=== PATIENT | female | born 1930 | race African-American/Black ===

== ENCOUNTER 2017-03-04 14:45 | Emergency (ER) | payer MEDICARE, MEDICAID ==
[~2017-03-04] VITALS: Ht 162.6 cm; Wt 74.0 kg
[2017-03-04 14:46] VITALS: BP 141/67; PULSE 82; RESP 20; TEMP 98.6; O2SAT 97
--- NOTE | 2017-03-04 16:04 | RADRPT ---
EXAM DATE/TIME: 03/04/2017 15:33 [facility] COMPARISON: No previous studies available for comparison. INDICATIONS : Pain and possible infection. MEDICAL HISTORY : Unobtainable. SURGICAL HISTORY : Total knee replacement, bilaterally. ENCOUNTER: Initial ACUITY: 3 weeks PAIN SCORE: 10/10 LOCATION: Right Entire knee. FINDINGS: Total knee arthroplasty hardware is in place with long femoral and tibial components. There are some invaginations and indentations on the midportion of both stems; is of uncertain significance and cou ld represent the architecture of the stem or fractures. The symmetric nature of both stems suggests that it is either side. There is lateral displacement of the distal tibial component with remodeling of the medial cortex and a lucency about the distal one third of the bone, metal interface measuring 4 mm. No lucency seen about the femoral component. There is mild soft tissue swelling anterior to the knee joint. No evidence of periosteal reaction in either the femur or tibia. There is periostea l reaction of the proximal metaphysis of the fibula. CONCLUSION: Longstem tibial and femoral components of total knee arthroplasty. There is radiographic evidence of loosening with remodeling of the distal tibial stem. No focal areas of bony destruction is seen. Daniel Qiu MD on March 04, 2017 at 16:00 Board Certified Radiologist. This report was verified electronically.
--- NOTE | 2017-03-04 16:20 | PD ---
HPI . right knee pain Chief Complaint: Injury Time Seen by Provider: 14:55 Travel History International Travel<30 days: No Contact w/Intl Traveler<30days: No Traveled to known affect area: No History of Present Illness HPI 86 year old female patient present to the emergency department for evaluation of right knee pain after falling on it 3 weeks ago. Patient has history of osteoarthritis and knee pain and has been evaluated by an orthopedist in the past. Patient has been ambulatory intermittently but typically uses a walker. Patient denies any chest pain, shortness of breath, fever, chills, malaise, nausea, vomiting, abdominal pain. PFSH Past Medical History Arthritis: Yes Asthma: Yes Respiratory: Yes (ASTHMA) Tetanus Vaccination: < 5 Years Influenza Vaccination: Yes ?: Not Para: 2 Past Surgical History Appendectomy: Yes Section: Yes (X 2) Hysterectomy: Yes Other Surgery: Yes (HERNIA REPAIR) Social History Alcohol Use: No Tobacco Use: No Substance Use: No Allergies-Medications (Allergen,Severity, Reaction): Coded Allergies: codeine (Verified Allergy, Severe, Nausea/Vomiting, 03/04/17) Reported Meds & Prescriptions Reported Meds & Active Scripts Active Active Prescriptions or Reported Medications Unobtainable Review of Systems Except as stated in HPI: all other systems reviewed are Neg Musculoskeletal: Positive: Pain (right knee pain) Physical Exam Narrative GENERAL: Well-nourished, well-developed 86-year-old female patient in no acute distress. Nontoxic appearing. SKIN: Focused skin assessment warm/dry. HEAD: Normocephalic. Atraumatic. EYES: No scleral icterus. No injection or drainage. NECK: Supple, trachea midline. No JVD or lymphadenopathy. CARDIOVASCULAR: Regular rate and rhythm without murmurs, gallops, or rubs. Bilateral pedal edema noted. Pedal pulses +2 bilaterally. RESPIRATORY: Breath sounds equal bilaterally. No accessory muscle use. GASTROINTESTINAL: Abdomen soft, non-tender, nondistended. MUSCULOSKELETAL: Right knee full range of motion with extension and flexion. No obvious deformity, erythema, ecchymosis cyanosis. BACK: Nontender without obvious deformity. No CVA tenderness. Data Data Last Documented VS Vital Signs Date Time Temp Pulse Resp B/P (MAP) Pulse Ox O2 Delivery O2 Flow Rate FiO2 03/04/17 16:58 03/04/17 14:46 98.6 82 20 97 Orders Orders Knee, Complete (4vws) (03/04/17 14:56) Ice/Cold Pack (03/04/17 14:56) Splint Or Brace Apply/Monitor (03/04/17 16:20) Ed Discharge Order (03/04/17 16:34) MDM Medical Decision Making Medical Screen Exam Complete: Yes Emergency Medical Condition: Yes Differential Diagnosis Differential diagnoses include but are not limited to contusion, sprain, osteoarthritis exacerbation, fall Narrative Course 86-year-old female presents emergency department for evaluation of right knee pain. X-ray of the right knee ordered and pending. Ice applied to the right knee. X-ray of the right knee shows longstem tibial and femoral components of total knee alveoloplasty. No focal areas of bony distraction seen. Right knee Js wrapped and patient discharged home with rice therapy instructions and instructions to follow-up with orthopedist. And states she had already spoken with her orthopedist about this prior any he has already said the only other option for her surgical. Patient states she will follow-up with him regarding this matter for potential surgery though. Last Impressions Knee X-Ray 03/04/17 [id number] Signed Impressions: Service Date/Time: Monday, March 04, 2017 15:33 - CONCLUSION: Longstem tibial and femoral components of total knee arthroplasty. There is radiographic evidence of loosening with remodeling of the distal tibial stem. No focal areas of bony destruction is seen. Daniel Qiu MD Diagnosis Primary Impression: Knee pain, right Qualified Codes: M25.561 - Pain in right knee Referrals: Orthopedist Patient Instructions: General Instructions, Knee Pain (ED) Additional Instructions: Please return to emergency department if your symptoms return or worsen. Follow up with your primary care provider. Follow-up with orthopedist Rice therapy to right knee, rest, ice, Js wrap with activity and elevate with resting. Scripts Unable to Obtain Active Prescriptions or Reported Meds Disposition: 01 DISCHARGE HOME Condition: Stable Mala Dawson KASSANDRA Mar 04, 2017 16:20
== END 2017-03-04 17:25 | disposition home or self-care (01) ==
LOC: NEPD 14:45
DX: M25.561 Pain in right knee (principal); M19.90 Unspecified osteoarthritis, unspecified site; J45.909 Unspecified asthma, uncomplicated; Z88.5 Allergy status to narcotic agent
CPT/HCPCS: 73564; 99284

== ENCOUNTER 2017-06-09 04:03 | Emergency (ER) | payer MEDICARE, MEDICAID ==
[~2017-06-09] VITALS: Ht 162.6 cm; Wt 170.0 kg
[2017-06-09 04:06] VITALS: BP 135/64; PULSE 91; RESP 18; O2SAT 96
[2017-06-09 04:10] VITALS: BP 135/64; PULSE 82; RESP 18; O2SAT 95
[2017-06-09] MEDS ORDERED: [UNRECOGNIZED DRUG - CODE] (04:37)
[2017-06-09] MEDS ORDERED: POTA10CA PO (04:37)
[2017-06-09] MEDS ORDERED: PARO10TA2 PO (04:37)
[2017-06-09] MEDS ORDERED: VITA250C3 CHEW (04:37)
[2017-06-09] MEDS ORDERED: FURO20TA PO (04:37)
[2017-06-09] MEDS ORDERED: FEXO180T PO (04:37)
[2017-06-09] MEDS ORDERED: RANI150T PO (04:37)
[2017-06-09] MEDS ORDERED: TRAM50TA PO (04:37)
[2017-06-09] MEDS ORDERED: ATOR40TA16 PO (04:37)
[2017-06-09] MEDS ORDERED: SENN8.6T81 PO (04:37)
[2017-06-09] MEDS ORDERED: primrose oil (04:37)
[2017-06-09] MEDS ORDERED: ACETAMINOPHEN 325 MG TAB PO ONE (05:00)
--- NOTE | 2017-06-09 05:52 | PD ---
HPI Chief Complaint: Fall Time Seen by Provider: 04:10 Travel History International Travel<30 days: No Contact w/Intl Traveler<30days: No Traveled to known affect area: No History of Present Illness HPI Patient is an 86-year-old female who has had knee replacements in the past tonight she got up to go to the bathroom and her knee gave out and she fell to the ground and is coming in with knee pain bilateral. Right is worse than left and she said her right knee gives her more trouble anyway that is the reason that she had difficulty . Tonight her knee buckled and she fell . No LOC no head injury no seizure, pt is awake and alert PFSH Past Medical History Arthritis: Yes Asthma: Yes Respiratory: Yes Influenza Vaccination: Yes ?: Not Para: 2 Past Surgical History Appendectomy: Yes Section: Yes (X 2) Hysterectomy: Yes Other Surgery: Yes (HERNIA REPAIR) Social History Alcohol Use: No Tobacco Use: No Substance Use: No Allergies-Medications (Allergen,Severity, Reaction): Coded Allergies: codeine (Verified Allergy, Severe, Nausea/Vomiting, 03/04/17) Reported Meds & Prescriptions Reported Meds & Active Scripts Active Reported [primrose oil] 1,000 Mg HS Vitamin C (Ascorbic Acid) 250 Mg Chew 250 Mg CHEW DAILY Sennosides 8.6 Mg Tab 8.6 Mg PO HS Mucosa (Guaifenesin) 400 Mg Tab Fexofenadine (Fexofenadine HCl) 180 Mg Tab 180 Mg PO DAILY Furosemide 20 Mg Tab 20 Mg PO BID Paroxetine (Paroxetine HCl) 10 Mg Tab 10 Mg PO DAILY Tramadol (Tramadol HCl) 50 Mg Tab 50 Mg PO Q4H PRN Atorvastatin (Atorvastatin Calcium) 40 Mg Tab 40 Mg PO HS Ranitidine (Ranitidine HCl) 150 Mg Tab 150 Mg PO BID Potassium Chloride ER (Potassium Chloride) 10 Meq Cap 10 Meq PO DAILY Review of Systems Except as stated in HPI: all other systems reviewed are Neg Physical Exam Narrative GENERAL: awake AOX3 and good historirian SKIN: Warm and dry. HEAD: Atraumatic. Normocephalic. EYES: Pupils equal and round. No scleral icterus. No injection or drainage. ENT: No nasal bleeding or discharge. Mucous membranes pink and moist. NECK: Trachea midline. No JVD. CARDIOVASCULAR: Regular rate and rhythm. RESPIRATORY: No accessory muscle use. Clear to auscultation. Breath sounds equal bilaterally. GASTROINTESTINAL: Abdomen soft, non-tender, nondistended. Hepatic and splenic margins not palpable. MUSCULOSKELETAL: Extremities bilateral scars on knees from old replace surgery,, right tibial area medial aspect tender , no erythema no swelling , focal tender tibial prox, medial without clubbing, cyanosis, or edema. No obvious deformities. NEUROLOGICAL: Awake and alert. No obvious cranial nerve deficits. Motor grossly within normal limits. Five out of 5 muscle strength in the arms and legs. Normal speech. PSYCHIATRIC: Appropriate mood and affect; insight and judgment normal. Data Data Last Documented VS Orders Orders Knee, Complete (4vws) (06/09/17 ) Knee, Complete (4vws) (06/09/17 ) Tibia/Fibula (Ap/Lat) (06/09/17 ) Acetaminophen (Tylenol) (06/09/17 05:00) Ed Discharge Order (06/09/17 06:29) Js Bandage (06/09/17 06:30) MDM Medical Decision Making Medical Screen Exam Complete: Yes Emergency Medical Condition: Yes Differential Diagnosis Patient has knee contusions versus fracture patella versus separation of her implanted knees and from the femur possible or simple knee contusions abrasion other Narrative Course X-rays of her knees bilaterally do not show any fracture or interruption of the connection between the bone and the knee prosthetic patient is safe to be discharged follow with orthopedist I will give the name of Dr. Dumont orthopedist collections attorney for her to follow-up with Diagnosis Primary Impression: Knee contusion Qualified Codes: S80.01XA - Contusion of right knee, initial encounter Referrals: Noe Dumont MD Patient Instructions: General Instructions, Knee Pain (ED) Med/Other Pt SpecificInfo: Prescription(s) given Disposition: 01 DISCHARGE HOME Condition: Jayce Streeter MD Jun 09, 2017 05:52
--- NOTE | 2017-06-09 05:57 | RADRPT ---
EXAM DATE/TIME: 06/09/2017 05:20 [facility] COMPARISON: KNEE RIGHT COMPLETE (4VWS), March 04, 2017, 15:33. INDICATIONS : Knee pain. MEDICAL HISTORY : None. SURGICAL HISTORY : Total knee replacement, bilaterally. ENCOUNTER: Initial ACUITY: 1 week PAIN SCORE: 10/10 LOCATION: Right knee FINDINGS: Total knee arthroplasty with longstem femoral and tibial components. The overall appearance of the h ardware and osseous structures is very similar to prior examination in February 2017. There is a sta ble appearance to the lucency about the distal tibial component, measuring up to 4 mm. Remodeling of the tibial shaft adjacent to the jd-metal lucency is also stable. Healed fracture of the proximal one third shaft of the fibula with periosteal thickening is stable. Soft tissues are stable in appe arance. CONCLUSION: No acute findings. The configuration of the longstem tibial and femoral components as well as the re modeling of the bone about the distal tibial stem is unchanged from February 2017. Daniel Qiu MD on June 09, 2017 at 5:51 Board Certified Radiologist. This report was verified electronically.
--- NOTE | 2017-06-09 05:59 | RADRPT ---
EXAM DATE/TIME: 06/09/2017 05:25 [facility] COMPARISON: KNEE RIGHT COMPLETE (4VWS), March 04, 2017, 15:33. INDICATIONS : Proximal tibia/fibula pain. MEDICAL HISTORY : None. SURGICAL HISTORY : Total knee replacement, bilaterally. ENCOUNTER: Initial ACUITY: 1 week PAIN SCORE: 10/10 LOCATION: Right tibia/fibula, proximal. FINDINGS: The configuration of the shaft of the proximal tibia adjacent to the distal lateral margin of the lorraine gstem tibial shaft the arthroplastic component is stable from prior examination. The mid and distal shaft of the tibia and fibula are normal in configuration. No radiopaque foreign bodies in the soft tissues. CONCLUSION: No acute findings. Daniel Qiu MD on June 09, 2017 at 5:56 Board Certified Radiologist. This report was verified electronically.
--- NOTE | 2017-06-09 06:01 | RADRPT ---
EXAM DATE/TIME: 06/09/2017 05:28 [facility] COMPARISON: No previous studies available for comparison. INDICATIONS : Knee pain. MEDICAL HISTORY : None. SURGICAL HISTORY : Total knee replacement, bilaterally. ENCOUNTER: Initial ACUITY: 1 week PAIN SCORE: 10/10 LOCATION: Left knee FINDINGS: Total knee arthroplasty hardware with long tibial and femoral shaft established in place. The hardwa re remains centered within the shaft of the tibia and fibula and there is no lucency at the cement/mali ne interface. No evidence of acute fracture. Soft tissues are grossly intact without focal soft tis liudmila thickening stop the suprapatellar soft tissues are normal in configuration. CONCLUSION: Intact longstem total knee arthroplasty hardware. No acute findings Daniel Qiu MD on June 09, 2017 at 5:58 Board Certified Radiologist. This report was verified electronically.
== END 2017-06-09 08:17 | disposition home or self-care (01) ==
LOC: NEPC 04:03
DX: S80.01XA Contusion of right knee, initial encounter (principal); J45.909 Unspecified asthma, uncomplicated; W18.39XA Other fall on same level, initial encounter; Z96.653 Presence of artificial knee joint, bilateral; Z88.5 Allergy status to narcotic agent; Z79.899 Other long term (current) drug therapy
CPT/HCPCS: 73564; 73590; 99283